=== PATIENT | female | born 1965 | race Caucasian/White ===

== ENCOUNTER 2017-06-19 07:09 | Emergency (ER) | payer OTHER, SELFPAY ==
[2017-06-19 07:13] VITALS: BP 127/83; PULSE 102; RESP 17; TEMP 36.4; O2SAT 100; BMI 32.4
--- NOTE | 2017-06-19 08:10 | ED.DCSUM_ITS ---
- ER Visit Summary Date of Service: 06/19/17 Chief Complaint: Rash History of Present Illness: The patient is a 52 F with a rash. Symptoms started gradually about 3 days ago. It started on her neck and then progressed to her face, and then her trunk and arms. The rash is red and itchy. She was seen at an urgent care and prescribed prednisone and Benadryl. She has been taking those for 2 days. The patient did have an upper respiratory/ear infection earlier this month starting around the . She took amoxicillin for 10 days. The rash started around the time she completed the amoxicillin course. She had some nausea this morning and lightheadedness. She ate a banana and laid down and felt a little better. No other symptoms. No fevers. No recent surgeries or procedures. No implanted devices. No skin abscesses. No other new medications. No new contacts, detergents, or other chemicals. Physical Examination: Afebrile and vital signs unremarkable except for heart rate of 102. The patient appears in no acute distress. Alert and oriented. Patient has morbilliform rash with confluent erythema over her trunk, neck, arms. There is some mild edema to her arms. There are also some smaller areas of rash involving her face and legs. Mucous membranes normal. Mouth normal. No blisters. No skin peeling or sloughing. No necrosis or crepitus. No bleeding or pus noted. Otherwise, her exam is unremarkable. Test Results: None indicated Emergency Department Course and Treatment: Patient has a morbilliform type rash. I believe this was triggered from amoxicillin use. She has some other mild associated symptoms, but I do not find any red flag features or signs of a more severe rash or infection. I believe the patient will need more time to see improvement in the rash. She should continue her Benadryl and prednisone. Will add Pepcid. We also talked about topical therapies. Red flag symptoms. Return if they develop. Otherwise, follow-up with her PCP later this week. Treatment Plan: As above Disposition: Discharged Impression: 1. Morbilloform rash This note was generated with [employer] software. It may contain incorrect words, spelling, and punctuation that were not noted in review of the chart prior to signing ED Disposition - Plan for ED Patient: Chief Complaint: Allergic Reaction Referrals: Arnaud Blanco DO [Primary Care Provider] -
--- NOTE | 2017-06-19 08:10 | ED.DEP ---
ED Disposition - Plan for ED Patient: Chief Complaint: Allergic Reaction Instructions: ED Allergic Reaction General Other Prescriptions: Famotidine [Pepcid] 20 mg PO BID #10 tab Referrals: Arnaud Blanco DO [Primary Care Provider] -
[2017-06-19 08:20] VITALS: BP 142/74; PULSE 81; RESP 18; O2SAT 99
--- NOTE | 2017-06-19 08:21 | ED.RN ---
THIS NURSE REVIEWED D/C INSTRUCTIONS WITH PT. PT VERBALIZED UNDERSTANDING OF INSTRUCTIONS. PT DENIES FURTHER NEEDS OR QUESTIONS AT THIS TIME.
== END 2017-06-19 08:22 | disposition home or self-care (01) ==
PROVIDERS: Emergency Provider Emergency Medicine; Family Provider Student in an Organized Health Care Education/Training Program; PCP Student in an Organized Health Care Education/Training Program
DX: L27.0 Generalized skin eruption due to drugs and medicaments taken internally (principal); T36.0X5A Adverse effect of penicillins, initial encounter; Y92.9 Unspecified place or not applicable; R42 Dizziness and giddiness; R11.0 Nausea; Z79.899 Other long term (current) drug therapy
CPT/HCPCS: 99282

== ENCOUNTER 2018-03-21 19:37 | Emergency (ER) | payer OTHER, SELFPAY ==
[2018-03-21 19:38] VITALS: BP 159/96; PULSE 88; RESP 18; TEMP 36.6; O2SAT 100; BMI 27.4
[2018-03-21 20:01] LABS: Absolute Neutrophil Count 4.7 X10^3/uL (2.0-7.7); Basophil# 0.05 X10^3/uL; Basophil% 0.7 % (0-1); Eosinophil# 0.29 X10^3/uL; Eosinophils% 4.3 % (0-5); Hematocrit 43.4 % (37-47); Hemoglobin 14.3 g/dl (12.0-15.0); Lymphocyte % 20.9 % (19-41); Mean Corp Hgb Conc 32.9 g/gl (32-36); Mean Corpuscular Hgb 29.7 pg (27.0-32.0); Mean Corpuscular Volume 90.2 fL (81-99); Monocyte# 0.29 X10^3/uL; Monocyte% 4.3 % (0-10); Neutrophil # 4.68 X10^3/uL (2.7-7.7); Neutrophil % 69.8 % (47-70); Platelet Count 252 K/mm3 (150-450); RBC Distribution Width CV 12.6 % (11.6-14.6); RBC Distribution Width SD 41.3 fl (35.1-43.9); Red Blood Count 4.81 M/mm3 (4.2-5.4); White Blood Count 6.7 K/mm3 (4.4-11.0)
[2018-03-21 20:04] LABS: POSITIVE COUNT NO; POSITIVE DIFFERENTIAL NO; POSITIVE MORPHOLOGY NO
[2018-03-21 20:11] LABS: Anion Gap 4 (5-15); BUN 19 mg/dL (7-18); BUN/Creat Ratio 23.6 RATIO (10-20); Calcium,Total 9.4 mg/dL (8.5-10.1); Chloride 105 mmol/L (98-107); EST Glomerular Filtration Rate 80 mL/min (>60); Est Glom Filt Rate - Afr Amer 97 mL/min (>60); Glucose 111 mg/dL (74-106); Sodium Level 138 mmol/L (136-145)
[2018-03-21 21:37] VITALS: PULSE 80; RESP 16
[2018-03-21] MEDS: Ondansetron ODT 4 MG Tablet PO (21:41)
[2018-03-21] MEDS: Dicyclomine 10 MG Capsule 20 MG PO (21:41)
[2018-03-21 21:50] LABS: Bacteria 0 SEEN /hpf (None Seen); Mucous, Urine 0 SEEN /hpf (<or=2+); Red Blood Cells-Urine 0 SEEN /hpf (0-5); White Blood Cells 0 SEEN /hpf (0-5)
[2018-03-21 21:51] LABS: Color, Urine Yellow (Yellow); Glucose, Dipstick Normal (Normal); Ketone-Dipstick Negative (Negative); Leukocyte Esterase-Dipstick Negative /ul (Negative); Nitrite-Dipstick Negative (Negative); Occult Blood-Urine Negative /ul (Negative); Protein-Dipstick Negative (Negative); Specific Gravity, Urine 1.015 (1.002-1.030); Urine Bilirubin Dipstick Negative (Negative); Urine Clarity Sl. Cloudy (Clear); Urine Urobilinogen Normal (Normal)
[2018-03-21 21:58] LABS: Squamous Epithelial Cells - UA 0-5 SEEN /hpf (5-10)
--- NOTE | 2018-03-21 22:13 | ED.DCSUM_ITS ---
- ER Visit Summary Date of Service: 03/21/18 Chief Complaint: Abdominal pain, nausea, near syncope History of Present Illness: The patient is a 52 F who presents with the above symptoms. She started with some abdominal pain earlier today. It was cramping. It was diffuse. She had nausea without vomiting. No diarrhea. No urinary symptoms. She did have some dizziness with this. Her last bowel movement was today. She denies any fevers. She states that now that she has been in the ER she actually feels a little bit better. Physical Examination: Vital signs reviewed. HEENT exam unremarkable. Heart is regular rate and rhythm without murmurs. Lungs are clear to auscultation. Abdomen is soft with mild diffuse tenderness. Extremities reveal no edema. Skin exam normal. Neurologic exam normal. Test Results: Laboratory studies unremarkable except for glucose of 111 Emergency Department Course and Treatment: Patient was given oral Bentyl and oral Zofran. She feels much better. Patient will be discharged with the same medications. She will follow-up with her PCP Treatment Plan: [] Disposition: Discharge Impression: Abdominal pain This note was generated with [employer] dictation software. It may contain incorrect words, spelling, and punctuation that were not noted in review of the chart prior to signing ED Disposition - Plan for ED Patient: Chief Complaint: Abd Pain Referrals: Arnaud Blanco DO [Primary Care Provider] -
--- NOTE | 2018-03-21 22:13 | ED.DEP ---
ED Disposition - Plan for ED Patient: Disposition: Home or Assisted Living Chief Complaint: Abd Pain Instructions: ED Abdominal Pain Unkn Cause Prescriptions: Ondansetron [Zofran Odt] 4 mg PO Q8H PRN PRN #10 tab PRN Reason: Nausea Dicyclomine HCl [Bentyl] 20 mg PO TIDAC #20 cap Referrals: Arnaud Blanco DO [Primary Care Provider] -
[2018-03-21 22:38] VITALS: PULSE 88; RESP 16
== END 2018-03-21 22:38 | disposition home or self-care (01) ==
PROVIDERS: Emergency Provider Emergency Medicine; Family Provider Student in an Organized Health Care Education/Training Program; PCP Student in an Organized Health Care Education/Training Program
DX: R10.9 Unspecified abdominal pain (principal); R55 Syncope and collapse; R11.0 Nausea; Z79.899 Other long term (current) drug therapy
CPT/HCPCS: 80048; 81001; 85025; 99283; A4216